=== PATIENT | male | born 2000 | race Two or more races ===

== ENCOUNTER 2023-03-11 13:42 | Emergency (ER) | payer SELFPAY ==
[~2023-03-11] VITALS: Ht 172.7 cm; Wt 79.5 kg
[2023-03-11 13:46] VITALS: TEMP 97.9
[2023-03-11] MEDS ORDERED: LIDOCAINE 1% 10 ML VIAL PERC ONE (15:30)
[2023-03-11] MEDS ORDERED: PERTUSS(ACELL),DIPH,TET VAC/PF 0.5 ML SYRINGE IM. ONE (15:30)
[2023-03-11 15:43] VITALS: BP 111/67; PULSE 67; RESP 15
[2023-03-11] MEDS ORDERED: NEOMYCIN/BACITRACIN/POLYMYXIN B OINTMENT PACKET TP ONE (16:00)
== END 2023-03-11 16:19 | disposition home or self-care (01) ==
LOC: EMS 13:44
DX: S61.411A Laceration without foreign body of right hand, initial encounter (principal); F17.210 Nicotine dependence, cigarettes, uncomplicated; X58.XXXA Exposure to other specified factors, initial encounter; Y93.89 Activity, other specified; Y92.89 Other specified places as the place of occurrence of the external cause; Y99.8 Other external cause status
CPT/HCPCS: 99283; 90715; 90471; 12001; J3490